=== PATIENT | male | born 1995 | race Caucasian/White ===

== ENCOUNTER 2016-10-24 20:01 | Emergency (ER) | payer SELFPAY ==
[2016-10-25] MEDS ORDERED: ALPR0.25 PO (17:02)
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
--- OUTSIDE RECORDS SUMMARY | 2016-11-18 05:16 | XMS REPORT ---
Author Author DENZEL ZAMORA [facility] Address [address] [place] [address] Care Team Providers Care Internet Developer Name Role Phone DENZEL ZAMORA Unavailable PROBLEMS Type Condition ICD9-CM Code [id number] Code Onset Dates Condition Status SNOMED Code Problem Unspecified mood [affective] disorder F39 Active 77200277 Problem Contusion of back 922.31 Active 92823993 Assessment Unspecified mood [affective] disorder F39 Mar, Active 38198127 ALLERGIES Unknown Allergies SOCIAL HISTORY No smoking Hx information available PLAN OF CARE VITAL SIGNS MEDICATIONS Unknown Medications RESULTS No Results PROCEDURES Procedure Date Ordered Related Diagnosis Body Site Psychotherapy, patient &/family, 45 minutes, established patient Apr 03, 2016 IMMUNIZATIONS No Known Immunizations
--- OUTSIDE RECORDS SUMMARY | 2016-11-18 05:16 | XMS REPORT ---
Author Author DENZEL ZAMORA [facility] Address [address] [place] [address] Care Team Providers Care Cap Coverer Name Role Phone DENZEL ZAMORA Unavailable PROBLEMS Type Condition ICD9-CM Code UZO64-CD Code Onset Dates Condition Status SNOMED Code Problem Unspecified mood [affective] disorder F39 Active 63778819 Problem Contusion of back 922.31 Active 02142949 Assessment Unspecified mood [affective] disorder F39 15 Mar, 2016 Active 244090187 ALLERGIES Unknown Allergies SOCIAL HISTORY No smoking Hx information available PLAN OF CARE VITAL SIGNS MEDICATIONS Unknown Medications RESULTS No Results PROCEDURES Procedure Date Ordered Related Diagnosis Body Site Psychotherapy, patient &/family, 30 minutes, established patient Apr 12, 2016 IMMUNIZATIONS No Known Immunizations
--- OUTSIDE RECORDS SUMMARY | 2016-11-18 05:16 | XMS REPORT ---
Author Author DENZEL ZAMORA [facility] Address [address] [place] [address] Care Team Providers Care Flue Tile Press Operator Name Role Phone DENZEL ZAMORA Unavailable PROBLEMS Type Condition ICD9-CM Code DPK71-BH Code Onset Dates Condition Status SNOMED Code Problem Unspecified mood [affective] disorder F39 Active 03880368 Problem Contusion of back 922.31 Active 41123252 Assessment Unspecified mood [affective] disorder F39 Mar, Active [id number] ALLERGIES Unknown Allergies SOCIAL HISTORY No smoking Hx information available PLAN OF CARE VITAL SIGNS MEDICATIONS Unknown Medications RESULTS No Results PROCEDURES Procedure Date Ordered Related Diagnosis Body Site PSYCHO TESTING ADMIN BY COMP Apr 10, 2016 IMMUNIZATIONS No Known Immunizations
== END 2016-10-24 20:57 | disposition left against medical advice (07) ==
LOC: EDUNIT# 20:01 → ER 20:03
DX: R07.9 Chest pain, unspecified (principal); Z53.21 Procedure and treatment not carried out due to patient leaving prior to being seen by health care provider

== ENCOUNTER → 2016-10-25 | Emergency (ER) | payer SELFPAY ==
[~2016-10-25] VITALS: Ht 182.9 cm; Wt 75.3 kg
[~2016-10-25] MED LIST: ALPR0.25 PO
--- NOTE | 2016-10-25 15:00 | Diagnostic Imaging Report ---
INDICATION: Chest pain. COMPARISON: None. FINDINGS: Two frontal radiographic view of the chest were obtained and demonstrate normal heart size and pulmonary vascularity. The lungs are well aerated and clear. No large pleural effusion or pneumothorax is seen. The visualized osseous structures show no acute abnormalities. IMPRESSION: 1. No acute cardiopulmonary process. Dictated by: Dictated on workstation # [id number]
--- NOTE | 2016-10-25 16:42 | ED Cardiac General ---
History of Present Illness General Chief Complaint: Cardiac/General Problems Stated Complaint: RAPID HEART RATE Nursing Triage Note: Rapid heart rate staerted yesterday around noon at work while moving play sets and heart rate "shot up" History of Present Illness Time seen by provider: 16:00 Initial Comments Evaluation for palpitations and tachycardia. Patient reports a history as a teenager of palpitations and having culture studies. He denies a specific diagnosis being made. He was told while in the [employer] that he possibly had valvular heart disease, he has had no follow-up for this. He does not currently have a primary care provider. He is under increased stress at the present time his is with twins at 35 weeks gestation. He reports the symptoms usually occur when he has been strenuous activity. He works at [employer]. Timing/Duration: intermittent Severity: mild Location: substernal Activities at Onset: emotional stress, other (work) Prior CP/Workup: other (as a teenager and went in the , no results available) Modifying Factors: improves with rest NTG SL RATE CLERK PASSENGER: No ASA po RATE CLERK PASSENGER: No Associated Systoms: Denies Symptoms Allergies and Home Medications Allergies Coded Allergies: amoxicillin (Verified Allergy, Unknown, 05/02/15) Home Medications Alprazolam 0.25 Mg Tablet, 0.25 MG PO Q8H PRN for ANXIETY, #12 Ref 0 Prescribed by: EVIE MONET on 10/25/16 1702 Review of Systems Constitutional: no symptoms reported EENTM: No Symptoms Reported, See HPI Respiratory: No Symptoms Reported, See HPI Cardiovascular: See HPI, Chest Pain, Irregular Heart Rate, Palpitations Gastrointestinal: No Symptoms Reported, See HPI Genitourinary: No Symptoms Reported, See HPI Musculoskeletal: no symptoms reported, see HPI Skin: no symptoms reported, see HPI Psychiatric/Neurological: See HPI, Anxiety Endocrine: No Symptoms Reported, See HPI Hematologic/Lymphatic: No Symptoms Reported, See HPI All Other Systems Reviewed Negative Unless Noted: Yes Past Ozziwrt-Ijzxpb-Vsnfgo Hx Patient Social History Recent Foreign Travel: No Contact w/Someone Who Travel: No Recent Infectious Disease Expo: No Recent Hopitalizations: No Immunizations Up To Date Tetanus Booster (TDap): Less than 5yrs Seasonal Allergies Seasonal Allergies: No Surgeries HX Surgeries: No Surgeries: Orthopedic Respiratory Hx Respiratory Disorders: Yes Respiratory Disorders: Asthma Cardiovascular Hx Cardiac Disorders: Yes Cardiac Disorders: Valvular Heart Disease Neurological Hx Neurological Disorders: Yes Neurological Disorders: Concussion Reproductive System Hx Reproductive Disorders: No Sexually Transmitted Disease: No HIV/AIDS: No Genitourinary Hx Genitourinary Disorders: No Gastrointestinal Hx Gastrointestinal Disorders: No Musculoskeletal Hx Musculoskeletal Disorders: Yes Endocrine Hx Endocrine Disorders: No HEENT HX ENT Disorders: No Cancer Hx Cancer: No Psychosocial Hx Psychiatric Problems: Yes Behavioral Health Disorders: ADD/ADHD, PTSD Integumentary HX Skin/Integumentary Disorder: No Blood Transfusions Hx Blood Disorders: No Adverse Reaction to a Blood Tr: No Physical Exam Vital Signs Vital Sign - Last 12Hours 10/25/16 13:57 Temp 96.6 Pulse 71 Resp 20 B/P (MAP) 110/59 Pulse Ox 99 O2 Flow Rate 0 Capillary Refill : Less Than 3 Seconds General Appearance: No Apparent Distress, WD/WN HEENT: PERRL/EOMI, TMs Normal, Normal ENT Inspection, Pharynx Normal Neck: Full Range of Motion, Normal Inspection Respiratory: Chest Non Tender, Lungs Clear Cardiovascular: Regular Rate, Rhythm, No Edema, No Murmur, Normal Peripheral Pulses Gastrointestinal: Normal Bowel Sounds, No Organomegaly, No Pulsatile Mass, Non Tender, Soft Extremity: Normal Capillary Refill, Normal Range of Motion, Non Tender, No Calf Tenderness, No Pedal Edema Neurologic/Psychiatric: Alert, Oriented x3, No Motor/Sensory Deficits, Normal Mood/Affect Skin: Normal Color, Warm/Dry Lymphatic: No Adenopathy Progress/Results/Core Measures Results/Orders My Orders Orders - EVIE MONET Chest 1 View, Ap/Pa Only (10/25/16 14:26) Ekg Tracing (10/25/16 14:26) Saline Lock/Iv-Start (10/25/16 14:26) Monitor-Rhythm Ecg Trace Only (10/25/16 14:26) Vital Signs/I&O Vital Sign - Last 12Hours 10/25/16 10/25/16 13:57 17:08 Temp 96.6 96.6 Pulse 71 64 Resp 20 20 B/P (MAP) 110/59 Pulse Ox 99 99 O2 Flow Rate 0 0 Blood Pressure Mean: 76 Progress Note : Progress Note Patient refused to have IV inserted or labs drawn. Discussed the risks associated with this, patient continued to refuse. Labs discontinued. ECG Initial ECG Impression Date: Oct 25, 2016 Initial ECG Impression Time: 14:39 Initial ECG Rate: 67 Initial ECG Rhythm: Normal Sinus Initial ECG Intervals: Normal Initial ECG Intervals ND 184; QRSD 88; QT 404; QTc 427 [place]: P 88; QRS 81; T [address] Cortes agreed with interpretation. Diagnostic Imaging Diagonstic Imaging: Xray Comments NAME: MEHDI MENDEZ MED REC#: [id number] PT STATUS: REG ER : 1995 PHYSICIAN: EVIE MONET ADMIT DATE: 10/25/16/ER Draft Date of Exam:10/25/16 CHEST 1 VIEW, AP/PA ONLY INDICATION: Chest pain. COMPARISON: None. FINDINGS: Two frontal radiographic view of the chest were obtained and demonstrate normal heart size and pulmonary vascularity. The lungs are well aerated and clear. No large pleural effusion or pneumothorax is seen. The visualized osseous structures show no acute abnormalities. IMPRESSION: 1. No acute cardiopulmonary process. Dictated on workstation # [id number] Dict: 10/25/16 1456 Trans: 10/25/16 1459 [facility] [id number] Interpreted by: JOEL DIAL Electronically signed by: Departure Impression Impression: Primary Impression: Intermittent palpitations Additional Impression: Anxiety Disposition: 01 HOME, SELF-CARE Condition: Stable Departure-Patient Inst. Referrals: NO,LOCAL PHYSICIAN (PCP/Family) Primary Care Physician Patient Instructions: Palpitations (DC) Add. Discharge Instructions: All discharge instructions reviewed with patient and/or family. Voiced understanding. Return to emergency department if symptoms worsen, chest pain, shortness of breath or any other concerns Establish care at [facility], and ask for referral for cardiology services. Scripts Alprazolam (Xanax) 0.25 Mg Tablet 0.25 MG PO Q8H Y for ANXIETY, #12 TAB 0 Refills Prov: EVIE MONET 10/25/16 Work/School Note: Local Medical Staff Listing EVIE MONET Oct 25, 2016 16:42
[2016-10-25 17:08] VITALS: BP 110/59
--- OUTSIDE RECORDS SUMMARY | 2016-11-18 06:39 | XMS REPORT | Continuity of Care Document ---
Author Author [facility] Organization [facility] Address Unknown Phone Unavailable Allergies Active Description Code Type Severity Reaction Onset Reported/Identified Relationship to Patient Clinical Status Yes amoxicillin [id number] Drug Allergy Unknown N/A 05/02/2015 Medications Problems [...] Status Pt. Type Provider Facility Loc./Unit Complaint [id number] 10/24/2016 20:03:00 2016 20:57:00 DIS Emergency LUCINDA FEREMAN DO [facility] ER CHEST TIGHTNESS/ELEV HR [id number] 05/02/2015 00:42:00 2014 01:36:00 DIS Emergency GRETEL SOUSA MD [facility] ER L FOOT PAIN/INJURY [id number] 10/25/2016 13:43:00 ACT Outpatient EVIE MONET [facility] ER RAPID HEART RATE
== END | disposition home or self-care (01) ==
LOC: EDUNIT# 13:41 → ER 13:43
DX: R00.2 Palpitations (principal); F41.9 Anxiety disorder, unspecified
CPT/HCPCS: 71010; 93005; 99281

== ENCOUNTER 2019-02-13 21:31 | Emergency (ER) | payer MEDICAID ==
[~2019-02-13] VITALS: Ht 188 cm; Wt 72.6 kg
[2019-02-13] MEDS ORDERED: LACTATED RINGERS 1,000 ML IV SCH ×2 (21:45→22:45)
--- NOTE | 2019-02-13 21:58 | ED Cardiac General ---
History of Present Illness General Chief Complaint: Cardiac/General Problems Stated Complaint: HEART RACING/POSS DEHYDRATED Source: patient Exam Limitations: no limitations History of Present Illness Date Seen by Provider: Feb 13, 2019 Time Seen by Provider: 21:57 Initial Comments To ER per private vehicle with reports of dehydration. States he's been homeless for the past week, not eating or drinking much. States that he's had a high heart rate as high as 159. Denies fevers or chills. He denies diarrhea or fluid losses other than sweating and poor intake Timing/Duration: changing over time Severity: moderate NTG SL TRANSPORT ASSISTANT: No ASA po TRANSPORT ASSISTANT: No Allergies and Home Medications Allergies Coded Allergies: amoxicillin (Verified Allergy, Unknown, 05/02/15) Home Medications Alprazolam 0.25 Mg Tablet, 0.25 MG PO Q8H PRN for ANXIETY Prescribed by: EVIE MONET on 10/25/16 0662 Patient Home Medication List Home Medication List Reviewed: Yes Review of Systems Review of Systems Constitutional: see HPI EENTM: No Symptoms Reported Respiratory: No Symptoms Reported Cardiovascular: See HPI, Palpitations Gastrointestinal: See HPI, Abdominal Pain Genitourinary: No Symptoms Reported Musculoskeletal: no symptoms reported Skin: no symptoms reported Psychiatric/Neurological: No Symptoms Reported Endocrine: No Symptoms Reported Hematologic/Lymphatic: No Symptoms Reported Past Xizuxhc-Izfyqx-Gqkknz Hx Patient Social History Recent Foreign Travel: No Contact w/Someone Who Travel: No Recent Hopitalizations: No Immunizations Up To Date Tetanus Booster (TDap): Less than 5yrs Seasonal Allergies Seasonal Allergies: No Past Medical History Orthopedic Asthma Currently Using CPAP: No Currently Using BIPAP: No Valvular Heart Disease Concussion Reproductive Disorders: No Sexually Transmitted Disease: No HIV/AIDS: No ADD/ADHD, PTSD Adverse Reaction/Blood Tranf: No Physical Exam Vital Signs Vital Signs - First Documented 02/13/19 21:39 Temp 98.8 Pulse 101 Resp 18 B/P (MAP) 126/96 (106) Capillary Refill : Height, Weight, BMI Height: 6'0" Weight: 166lbs. oz. 75.328970pd; BMI Method:Actual General Appearance: No Apparent Distress, WD/WN, Anxious HEENT: PERRL/EOMI, TMs Normal Neck: Full Range of Motion, Normal Inspection Respiratory: Normal Breath Sounds, No Accessory Muscle Use, No Respiratory Distress Cardiovascular: Normal Peripheral Pulses, Tachycardia (120 sinus) Gastrointestinal: Normal Bowel Sounds, Non Tender, Soft Neurologic/Psychiatric: Alert, Oriented x3 Skin: Normal Color, Warm/Dry, Other (tinea versicolor noted to torso) Progress/Results/Core Measures Results/Orders Lab Results Laboratory Tests Test 02/13/19 21:50 Range/Units White Blood Count 8.4 4.3-11.0 10^3/uL Red Blood Count 6.07 H 4.35-5.85 10^6/uL Hemoglobin 17.5 13.3-17.7 G/DL Hematocrit 51 40-54 % Mean Corpuscular Volume 83 80-99 FL Mean Corpuscular Hemoglobin 29 25-34 PG Mean Corpuscular Hemoglobin Concent 35 32-36 G/DL Red Cell Distribution Width 12.6 10.0-14.5 % Platelet Count 282 130-400 10^3/uL Mean Platelet Volume 10.1 7.4-10.4 FL Neutrophils (%) (Auto) 79 H 42-75 % Lymphocytes (%) (Auto) 15 12-44 % Monocytes (%) (Auto) 6 0-12 % Eosinophils (%) (Auto) 0 0-10 % Basophils (%) (Auto) 0 0-10 % Neutrophils # (Auto) 6.6 1.8-7.8 X 10^3 Lymphocytes # (Auto) 1.3 1.0-4.0 X 10^3 Monocytes # (Auto) 0.5 0.0-1.0 X 10^3 Eosinophils # (Auto) 0.0 0.0-0.3 10^3/uL Basophils # (Auto) 0.0 0.0-0.1 10^3/uL Sodium Level 141 135-145 MMOL/L Potassium Level 3.8 3.6-5.0 MMOL/L Chloride Level 103 98-107 MMOL/L Carbon Dioxide Level 24 21-32 MMOL/L Anion Gap 14 5-14 MMOL/L Blood Urea Nitrogen 9 7-18 MG/DL Creatinine 1.22 0.60-1.30 MG/DL Estimat Glomerular Filtration Rate > 60 BUN/Creatinine Ratio 7 Glucose Level 99 70-105 MG/DL Calcium Level 10.6 H 8.5-10.1 MG/DL Corrected Calcium 8.5-10.1 MG/DL Magnesium Level 3.4 H 1.8-2.4 MG/DL Total Bilirubin 0.4 0.1-1.0 MG/DL Aspartate Amino Transf (AST/SGOT) 21 5-34 U/L Alanine Aminotransferase (ALT/SGPT) 16 0-55 U/L Alkaline Phosphatase 72 40-136 U/L Troponin I < 0.028 <0.028 NG/ML Total Protein 9.1 H 6.4-8.2 GM/DL Albumin 5.4 H 3.2-4.5 GM/DL My Orders Orders - TRACEY HELMS APRN Troponin I (02/13/19 21:45) Ekg Tracing (02/13/19 21:45) Lactated Ringers (Lr 1000 Ml Iv Solution (02/13/19 21:45) Vital Signs/I&O 02/13/19 21:39 Temp 98.8 Pulse 101 Resp 18 B/P (MAP) 126/96 (106) Departure Impression Primary Impression: Volume depletion Disposition: 01 HOME, SELF-CARE Condition: Stable Departure-Patient Inst. Decision time for Depature: 22:31 Referrals: NO,LOCAL PHYSICIAN (PCP/Family) Primary Care Physician Patient Instructions: Dehydration, Adult (DC) Add. Discharge Instructions: All discharge instructions reviewed with patient and/or family. Voiced understanding. TRACEY HELMS APRN Feb 13, 2019 21:58
[2019-02-13 22:03] LABS: BASOPHILS % (AUTO) 0 % (0-10); EOSINOPHILS % (AUTO) 0 % (0-10); HEMATOCRIT 51 % (40-54); HEMOGLOBIN 17.5 G/DL (13.3-17.7); LYMPHOCYTES # (AUTO) 1.3 X 10^3 (1.0-4.0); LYMPHOCYTES % (AUTO) 15 % (12-44); MEAN CORPUSCULAR HEMOGLOBIN 29 PG (25-34); MEAN CORPUSCULAR HGB CONC 35 G/DL (32-36); MEAN CORPUSCULAR VOLUME 83 FL (80-99); MEAN PLATELET VOLUME 10.1 FL (7.4-10.4); MONOCYTES # (AUTO) 0.5 X 10^3 (0.0-1.0); MONOCYTES % (AUTO) 6 % (0-12); NEUTROPHILS # (AUTO) 6.6 X 10^3 (1.8-7.8); NEUTROPHILS % (AUTO) 79 % (42-75); PLATELET COUNT 282 10^3/uL (130-400); RED CELL DISTRIBUTION WIDTH 12.6 % (10.0-14.5); WHITE BLOOD COUNT 8.4 10^3/uL (4.3-11.0)
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
--- OUTSIDE RECORDS SUMMARY | 2019-02-13 22:17 | XMS REPORT ---
Author Author Migration, Doctor Organization [facility] Address Unknown Phone Unavailable Care Team Providers Care Agricultural Systems Specialist Name Role Phone Migration, Doctor Unavailable Unavailable PROBLEMS Type Condition ICD9-CM Code KPS86-ZA Code Onset Dates Condition Status SNOMED Code Problem Mood disorder F39 Active 07925519 Problem Anxiety F41.9 Active 07699805 Problem Unspecified mood [affective] disorder F39 Active 50874109 ALLERGIES Substance Reaction Event Type Date Status Amoxicillin Unknown Drug Allergy Oct, Active ENCOUNTERS Encounter Location Date Diagnosis [facility] [id number] [place] [phone] Aug, Fever R50.9 and Influenza A J10.1 [facility] [id number] [place] [address] Mar, Anxiety F41.9 [facility] [id number] [place] [phone] Feb, Mood disorder F39 [facility] [id number] [place] [address] Mar, Unspecified mood [affective] disorder F39 [facility] [id number] [place] [address] Mar, Unspecified mood [affective] disorder F39 [facility] [id number] [place] [address] Mar, Unspecified mood [affective] disorder [id number] [place] [phone] Oct, [facility] [id number] [place] [phone] Oct, [facility] [id number] [place] [address] Apr, [facility] [address] [facility] [id number] [place] [address] Apr, [facility] [address] [facility] [id number] [address] Apr, [facility] [address] [facility] [id number], [place] [address] Apr, IMMUNIZATIONS No Known Immunizations SOCIAL HISTORY Never Assessed REASON FOR VISIT [facility] [place] CARE VITAL SIGNS MEDICATIONS Medication Instructions Dosage Frequency Start Date End Date Duration Status PredniSONE 10 mg 1 Tablet by Oral route 2 times per day for 7 days Suggested dosing time 8 am and noon. Do not take after 3 pm as may interfere with sleep. Apr, Active RESULTS No Results PROCEDURES No Known procedures INSTRUCTIONS MEDICATIONS ADMINISTERED No Known Medications MEDICAL (GENERAL) HISTORY Type Description Date Medical History ADHD Medical History PTSD Medical History Bi-polar Surgical History Right knee surgery 2007 Hospitalization History PTSD 2011
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
--- OUTSIDE RECORDS SUMMARY | 2019-02-13 22:17 | XMS REPORT ---
Author Author Migration, Doctor Organization [facility] Address Unknown Phone Unavailable Care Team Providers Care Emergency Vehicle Operations Instructor Name Role Phone Migration, Doctor Unavailable Unavailable PROBLEMS Type Condition ICD9-CM Code SAW05-PA Code Onset Dates Condition Status SNOMED Code Problem Mood disorder F39 Active 52574428 Problem Anxiety F41.9 Active 48467237 Problem Unspecified mood [affective] disorder F39 Active 90555763 ALLERGIES No Information ENCOUNTERS Encounter Location Date Diagnosis [facility] [address] [address] Aug, Fever R50.9 and Influenza A J10.1 [facility] [address] [address] Mar, Anxiety F41.9 [facility] [id number] [place] [phone] Feb, Mood disorder F39 [facility] [id number] [place] [phone] Mar, Unspecified mood [affective] disorder F39 [facility] [id number] [place] [phone] Mar, Unspecified mood [affective] disorder F39 [facility] [id number] [place] [phone] 06 Mar, 2016 Unspecified mood [affective] disorder [address] [address] Oct, [facility] [address] [address] Oct, [facility] [id number] [place] [phone] Apr, [facility] [address] [facility] [id number] [place] [address] Apr, [facility] [address] [facility] [id number] [place] [address] Apr, [facility] [address] [facility] [id number] [place] [address] Apr, IMMUNIZATIONS No Known Immunizations SOCIAL HISTORY Never Assessed REASON FOR VISIT [place] [place] PLAN OF CARE VITAL SIGNS MEDICATIONS No Known Medications RESULTS No Results PROCEDURES No Known procedures INSTRUCTIONS MEDICATIONS ADMINISTERED No Known Medications MEDICAL (GENERAL) HISTORY Type Description Date Medical History ADHD Medical History PTSD Medical History Bi-polar Surgical History Right knee surgery 2008 Hospitalization History PTSD 2011
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
[2019-02-13 22:22] LABS: ALANINE AMINOTRANSFERASE 16 U/L (0-55); ALBUMIN 5.4 GM/DL (3.2-4.5); ALKALINE PHOSPHATASE 72 U/L (40-136); BILIRUBIN,TOTAL 0.4 MG/DL (0.1-1.0); BUN/CREATININE RATIO 7; CALCIUM 10.6 MG/DL (8.5-10.1); CARBON DIOXIDE 24 MMOL/L (21-32); CHLORIDE 103 MMOL/L (98-107); CREATININE SERUM 1.22 MG/DL (0.60-1.30); GFR ESTIMATED > 60; GLUCOSE 99 MG/DL (70-105); MAGNESIUM 3.4 MG/DL (1.8-2.4); POTASSIUM 3.8 MMOL/L (3.6-5.0); SODIUM 141 MMOL/L (135-145); TOTAL PROTEIN 9.1 GM/DL (6.4-8.2)
[2019-02-13 23:45] VITALS: BP 125/89
== END 2019-02-13 23:48 | disposition home or self-care (01) ==
LOC: EDUNIT# 21:31 → ER 21:33
DX: E86.9 Volume depletion, unspecified (principal); J45.909 Unspecified asthma, uncomplicated; F43.10 Post-traumatic stress disorder, unspecified; F90.9 Attention-deficit hyperactivity disorder, unspecified type; Z88.1 Allergy status to other antibiotic agents
CPT/HCPCS: 36415; 80053; 83735; 84484; 85025; 93005; 96360; 96361

== ENCOUNTER 2019-06-03 10:34 | Emergency (ER) | payer OTHER, MEDICAID ==
[~2019-06-03] VITALS: Ht 187 cm; Wt 86.0 kg
[2019-06-03] MEDS ORDERED: HYDR50TA76 (10:53)
[2019-06-03] MEDS ORDERED: MIRT30TA6 (10:53)
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
[2019-06-03] MEDS ORDERED: METH-313 PO (11:43)
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
[2019-06-03 11:59] VITALS: BP 127/86
== END 2019-06-03 11:59 | disposition home or self-care (01) ==
LOC: EDUNIT# 10:34 → ER 10:35
DX: S16.1XXA Strain of muscle, fascia and tendon at neck level, initial encounter (principal); J45.909 Unspecified asthma, uncomplicated; F90.9 Attention-deficit hyperactivity disorder, unspecified type; F43.10 Post-traumatic stress disorder, unspecified; Z87.820 Personal history of traumatic brain injury; Z88.0 Allergy status to penicillin; V48.5XXA Car driver injured in noncollision transport accident in traffic accident, initial encounter
CPT/HCPCS: 70450; 72100; 72125

== ENCOUNTER → 2019-08-10 | Emergency (ER) | payer MEDICAID, OTHER ==
[~2019-08-10] VITALS: Ht 190 cm; Wt 100.0 kg
[~2019-08-10] MED LIST changes: +HYDR50TA76; +METH-313 PO; +MIRT30TA6
[2019-08-10 12:21] VITALS: BP 114/71
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
--- NOTE | 2019-08-10 12:52 | Diagnostic Imaging Report ---
PROCEDURE: CT head without contrast. TECHNIQUE: Multiple contiguous axial images were obtained through the brain without the use of intravenous contrast. Auto Exposure Controls were utilized during the CT exam to meet ALARA standards for radiation dose reduction. INDICATION: Head injury with headache and dizziness. COMPARISON: Comparison is made to examination of 06/03/2019. FINDINGS: Ventricles and sulci are within normal limits for size. There is no intracranial hemorrhage identified. There is no abnormal mass effect or shift of midline structures. IMPRESSION: Unremarkable CT of the head. Dictated by: Dictated on workstation # [id number]
== END ==
LOC: EDUNIT# 11:36 → ER 11:37
DX: S01.01XA Laceration without foreign body of scalp, initial encounter (principal); J45.909 Unspecified asthma, uncomplicated; F90.9 Attention-deficit hyperactivity disorder, unspecified type; F43.10 Post-traumatic stress disorder, unspecified; Z88.0 Allergy status to penicillin; Z87.820 Personal history of traumatic brain injury; W22.8XXA Striking against or struck by other objects, initial encounter
CPT/HCPCS: 70450; 99282

== ENCOUNTER 2019-10-10 18:09 | Emergency (ER) | payer MEDICAID ==
[~2019-10-10] VITALS: Ht 190 cm; Wt 104.0 kg
--- NOTE | 2019-10-10 18:34 | ED Lower Extremity ---
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 PT REPORTS CAUGHT HAND ON A NAIL AT HOME WHILE HANGING A SOUND SYSTEM. Nursing Sepsis Screen: No Definite Risk Source: patient Exam Limitations: no limitations History of Present Illness Date Seen by Provider: Oct 10, 2019 Time Seen by Provider: 18:31 Initial Comments To ER with laceration to the 30 minutes prior to arrival from catching it on a nail while painting. Tetanus vaccine is up-to-date within the past 5 years. Onset: just prior to arrival Severity: mild Pain/Injury Location: left other (thumb) Modifying Factors: Worse With Movement Allergies and Home Medications Allergies Coded Allergies: amoxicillin (Verified Allergy, Unknown, 05/02/15) Home Medications Alprazolam 0.25 Mg Tablet, 0.25 MG PO Q8H PRN for ANXIETY Prescribed by: EVIE MONET on 10/25/16 1702 Methocarbamol 750 Mg Tablet, 750 MG PO Q4H PRN for PAIN-MODERATE Prescribed by: TRACEY HELMS on 06/03/19 1143 Patient Home Medication List Home Medication List Reviewed: Yes Review of Systems Constitutional: see HPI EENTM: see HPI Respiratory: no symptoms reported Cardiovascular: no symptoms reported Genitourinary: no symptoms reported Musculoskeletal: no symptoms reported Skin: see HPI Psychiatric/Neurological: No Symptoms Reported Past Nkawnrq-Yawlyo-Zqewsj Hx Patient Social History Alcohol Use: Denies Use Recreational Drug Use: No Smoking Status: Never a Smoker Recent Foreign Travel: No Contact w/Someone Who Travel: No Recent Infectious Disease Expo: No Recent Hopitalizations: No Immunizations Up To Date Tetanus Booster (TDap): Less than 5yrs Seasonal Allergies Seasonal Allergies: No Past Medical History Surgeries: Yes Orthopedic Respiratory: Yes Asthma Currently Using CPAP: No Currently Using BIPAP: No Cardiac: Yes Valvular Heart Disease Neurological: Yes (STATES "BAD VALVE" YET UNSURE WHAT IT IS) Concussion Reproductive Disorders: No Sexually Transmitted Disease: No HIV/AIDS: No Genitourinary: No Gastrointestinal: No Musculoskeletal: Yes Endocrine: No Cancer: No Psychosocial: Yes ADD/ADHD, PTSD Integumentary: No Blood Disorders: No Adverse Reaction/Blood Tranf: No Physical Exam Vital Signs Vital Signs - First Documented 10/10/19 18:14 Temp 37.1 Pulse 67 Resp 20 B/P (MAP) 124/72 (89) Pulse Ox 99 O2 Delivery Room Air Capillary Refill : Less Than 3 Seconds Height, Weight, BMI Height: 6'2.00" Weight: 160lbs. oz. 72.797136is; 28.00 BMI Method:Stated General Appearance: WD/WN, no apparent distress HEENT: PERRL/EOMI, normal ENT inspection Respiratory: no respiratory distress, no accessory muscle use Hips: bilateral hip non-tender, bilateral hip normal inspection, bilateral hip normal range of motion Legs: bilateral leg non-tender, bilateral leg normal inspection, bilateral leg normal range of motion Knees: bilateral knee non-tender, bilateral knee normal inspection, bilateral knee normal range of motion Ankles: bilateral ankle non-tender, bilateral ankle normal inspection Feet: bilateral foot non-tender, bilateral foot normal inspection, bilateral foot normal range of motion Neurologic/Psychiatric: alert, normal mood/affect, oriented x 3 Skin: normal color, warm/dry There is a 3 cm laceration down the side of the thumb volar surface, most of this is superficial except for about 0.5 cm which has a depth to subcutaneous tissue. This will be glued. It's been cleaned with chlorhexidine/saline solution Progress/Results/Core Measures Results/Orders Vital Signs/I&O 10/10/19 18:14 Temp 37.1 Pulse 67 Resp 20 B/P (MAP) 124/72 (89) Pulse Ox 99 O2 Delivery Room Air Blood Pressure Mean: 89 Departure Impression Primary Impression: Laceration of thumb Qualified Codes: S61.012A - Laceration without foreign body of left thumb without damage to nail, initial encounter Disposition: 01 HOME, SELF-CARE Condition: Stable Departure-Patient Inst. Decision time for Depature: 18:34 Referrals: [facility] (PCP) Primary Care Physician NO,LOCAL PHYSICIAN (Family) Primary Care Physician Patient Instructions: Laceration Repair With Glue (DC) Add. Discharge Instructions: 1. Return to ER for any concerns 2. Rule out we'll follow up on its own in about 3-5 days. Don't apply any ointments lotions or creams to this. All discharge instructions reviewed with patient and/or family. Voiced understanding. TRACEY HELMS APRN Oct 10, 2019 18:34
[2019-10-10 18:51] VITALS: BP 124/72
== END 2019-10-10 18:55 | disposition home or self-care (01) ==
LOC: EDUNIT# 18:09 → ER 18:11
DX: S61.012A Laceration without foreign body of left thumb without damage to nail, initial encounter (principal); Z88.0 Allergy status to penicillin; W26.8XXA Contact with other sharp object(s), not elsewhere classified, initial encounter
CPT/HCPCS: 99282

== ENCOUNTER 2019-10-13 13:19 | Emergency (ER) | payer MEDICAID ==
[~2019-10-13] VITALS: Ht 190.5 cm; Wt 104.3 kg
[2019-10-13] MEDS ORDERED: SULF1TAB35 PO (13:43)
--- NOTE | 2019-10-13 13:43 | ED Integumentary General ---
General Chief Complaint: Skin/Wound Problems Stated Complaint: R HAND INFECTION Source: patient Exam Limitations: no limitations History of Present Illness Date Seen by Provider: Oct 13, 2019 Time Seen by Provider: 13:38 Initial Comments 24-year-old male who presents to the emergency room with concerns for a wound infection to his right hand/thumb area. He was seen in here few days ago and had a wound repaired with skin glue reports that he went home picked up the skin glue applied superglue and has been using alcohol and peroxide to the area. Minimal redness to the area, no drainage noted. Associated Symptoms: denies symptoms Allergies and Home Medications Allergies Coded Allergies: amoxicillin (Verified Allergy, Unknown, 05/02/15) Home Medications Alprazolam 0.25 Mg Tablet, 0.25 MG PO Q8H PRN for ANXIETY Prescribed by: EVIE MONET on 10/25/16 1702 Methocarbamol 750 Mg Tablet, 750 MG PO Q4H PRN for PAIN-MODERATE Prescribed by: TRACEY HELMS on 06/03/19 1143 Patient Home Medication List Home Medication List Reviewed: Yes Review of Systems Review of Systems Constitutional: see HPI; No chills, No fever Skin: see HPI, other (wound concern) All Other Systems Reviewed Negative Unless Noted: Yes Past Lmftokb-Rwspdd-Jxdvwy Hx Past Med/Social Hx: Reviewed Nursing Past Med/Soc Hx Patient Social History Recent Foreign Travel: No Contact w/Someone Who Travel: No Recent Hopitalizations: No Immunizations Up To Date Tetanus Booster (TDap): Less than 5yrs Seasonal Allergies Seasonal Allergies: No Past Medical History Surgeries: Yes Orthopedic Respiratory: Yes Asthma Currently Using CPAP: No Currently Using BIPAP: No Cardiac: Yes Valvular Heart Disease Neurological: Yes (STATES "BAD VALVE" YET UNSURE WHAT IT IS) Concussion Reproductive Disorders: No Sexually Transmitted Disease: No HIV/AIDS: No Genitourinary: No Gastrointestinal: No Musculoskeletal: Yes Endocrine: No Cancer: No Psychosocial: Yes ADD/ADHD, PTSD Integumentary: No Blood Disorders: No Adverse Reaction/Blood Tranf: No Family Medical History Reviewed Nursing Family Hx Physical Exam Vital Signs Capillary Refill : General Appearance: WD/WN, no apparent distress Cardiovascular: normal peripheral pulses, regular rate, rhythm, no edema, no gallop, no JVD, no murmur Respiratory: chest non-tender, lungs clear, normal breath sounds, no respiratory distress, no accessory muscle use Gastrointestinal: normal bowel sounds, non tender, soft, no organomegaly, no pulsatile mass Extremities: normal capillary refill Neurologic/Psychiatric: alert, normal mood/affect, oriented x 3 Skin: normal color, warm/dry Skin Problem Character: erythema (along wound to right thumb) Departure Impression Primary Impression: Soft tissue infection Disposition: HOME, SELF-CARE Condition: Stable/Unchanged Departure-Patient Inst. Decision time for Depature: 13:42 [address]errals: [facility] (PCP) Primary Care Physician NO,LOCAL PHYSICIAN (Family) Primary Care Physician Patient Instructions: Laceration Infection (DC), Laceration Infection Add. Discharge Instructions: Take medication as directed. Follow-up with her primary care provider within 1 week for recheck. Return back to the emergency room for worsening symptoms or concerns as needed. All discharge instructions reviewed with patient and/or family. Voiced understanding. Scripts Sulfamethoxazole/Trimethoprim (Bactrim Ds Tablet) 1 Each Tablet 1 EACH PO BID for 7 Days, #14 TAB Prov: GREGG OCHOA 10/13/19 GREGG OCHOA Oct 13, 2019 13:43
[2019-10-13 14:01] VITALS: BP 122/78
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
== END 2019-10-13 14:01 | disposition home or self-care (01) ==
LOC: EDUNIT# 13:19 → ER 13:20
DX: L08.9 Local infection of the skin and subcutaneous tissue, unspecified (principal); Z88.0 Allergy status to penicillin
CPT/HCPCS: 99282

== ENCOUNTER 2020-07-08 17:55 | Emergency (ER) | payer MEDICAID ==
[~2020-07-08] VITALS: Ht 190.5 cm; Wt 103.4 kg
[~2020-07-08 17:55] MED LIST changes: +SULF1TAB35 PO
[2020-07-08 18:08] VITALS: BP 136/90
== END 2020-07-08 18:27 | disposition left against medical advice (07) ==
LOC: EDUNIT# 17:55 → ER 17:57
DX: M25.511 Pain in right shoulder (principal)
CPT/HCPCS: 99282

== ENCOUNTER 2020-08-22 14:28 | Emergency (ER) | payer MEDICAID ==
[~2020-08-22] VITALS: Ht 191 cm; Wt 104.0 kg
[2020-08-22 14:33] VITALS: BP 138/92
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
--- NOTE | 2020-08-22 15:30 | Diagnostic Imaging Report ---
INDICATION: Left shoulder pain. FINDINGS: Three views of the left shoulder show no fracture, dislocation, or other acute abnormalities. IMPRESSION: Negative left shoulder. Dictated by: Dictated on workstation # [id number]
== END 2020-08-22 15:22 | disposition home or self-care (01) ==
LOC: EDUNIT# 14:28 → ER 14:31
DX: M24.812 Other specific joint derangements of left shoulder, not elsewhere classified (principal); F90.9 Attention-deficit hyperactivity disorder, unspecified type; F43.10 Post-traumatic stress disorder, unspecified; Z88.1 Allergy status to other antibiotic agents; X50.1XXA Overexertion from prolonged static or awkward postures, initial encounter
CPT/HCPCS: 73030; 99283; A4565